=== PATIENT | female | born 1970 | race Caucasian/White ===

== ENCOUNTER 2016-08-30 13:12 | Inpatient (IN) | payer OTHER ==
--- NOTE | 2016-08-30 13:51 | PDOC ---
History of Present Illness - General History Source: Patient Exam Limitations: No Limitations - History of Present Illness Initial Comments: 08/30/16 14:07 The patient is a 46-year-old woman, accompanied by spouse, with a past medical history of a benign pituitary adenoma, anemia, and borderline diabetes mellitus who was sent to his PMD, Dr. Donna Walden to the emergency department for further evaluation of anemia. Patient went to her PMDs office, secondary to progressively worsening left flank pain for the past 8 days. She reports that initially her pain was intermittent and resolved with naas-nbs-[id number] Motrin, however her symptoms worsen and it became constant and did not resolve after taking Motrin. She went to Dr. Walden's office, approximately days ago, for which she was started on antibiotics and pain medications was advised to return to the office if her symptoms persist/worsen. She returned two days later, where she had outpatient labs drawn and ultrasounds performed, which was indicative for a hemoglobin of 6.6 and was advised to present to the emergency department. She states that she has a history of heavy periods for the past 3 years and reports compliance with iron supplements. Her typically menses are heavy for the first 3-4 days (reports soaking 4-5x pads/ day), gets alliance director with spotting and resolves within 8-10 days. Her last menstrual period was on 08/07/2016 and was consistent with her regular menses. She has been evaluated by her Special Shopper who informed her that her source of anemia is due to her history of fibroids. A recommendation was suggested to remove her fibroids, for which she has opted out of. She denies fever, chills, diaphoresis, generalized weakness. She denies chest pain, shortness of breath, cough She denies nausea, vomiting, diarrhea, dysuria, hematuria, urinary frequency and urgency, flank pain, vaginal discharge/vaginal bleeding Allergies: No Known Drug Allergies Past Surgical History: None reported. Social History: No tobacco, ETOH and recreational drug use. Primary Care Physician: Dr. Donna Walden [phone] Special Shopper: Dr. Dipesh Henry [phone] <Ani Burgess - Last Filed: 08/30/16 16:54> - General History Source: Patient, Old Records Exam Limitations: No Limitations <Alicia Barnes - Last Filed: 08/30/16 16:58> - General Chief Complaint: Blood Transfusion Stated Complaint: DIZZINESS, LOW BLOOD COUNT (PCP SENT) Time Seen by Provider: 08/30/16 13:42 Past History <AdityaAni - Last Filed: 08/30/16 16:54> - Past Medical History Anemia: Yes Other medical history: FIBROIDS, PITUITARY PROBLEM - Psycho/Social/Smoking Cessation Hx Anxiety: No Suicidal Ideation: No Smoking History: Never smoked Have you smoked in the past 12 months: No Hx Alcohol Use: No Drug/Substance Use Hx: No Substance Use Type: None <Alicia Barnes - Last Filed: 08/30/16 16:58> - Past Medical History Allergies/Adverse Reactions: Allergies Allergy/AdvReac Type Severity Reaction Status Date / Time No Known Allergies Allergy Verified 08/30/16 13:21 Home Medications: Ambulatory Orders NK [No Known Home Medication] 03/15/15 Review of Systems - Review of Systems Able to Perform ROS?: Yes Comments:: 08/30/16 14:07 CONSTITUTIONAL: Absent: fever, chills, diaphoresis, generalized weakness, malaise, loss of appetite HEENT: Absent: rhinorrhea, nasal congestion, throat pain, throat swelling, difficulty swallowing, mouth swelling, ear pain, eye pain, visual Changes CARDIOVASCULAR: Absent: chest pain, syncope, palpitations, irregular heart rate , lightheadedness, peripheral edema RESPIRATORY: Absent: cough, shortness of breath, dyspnea with exertion, orthopnea, wheezing, stridor, hemoptysis GASTROINTESTINAL: Present: Abdominal Pain. Absent: abdominal distension, nausea , vomiting, diarrhea, constipation, melena, hematochezia GENITOURINARY: Present: Left flank pain. Absent: dysuria, frequency, urgency, hesitancy, hematuria, genital pain MUSCULOSKELETAL: Absent: myalgia, arthralgia, joint swelling SKIN: Absent: rash, itching, pallor HEMATOLOGIC/IMMUNOLOGIC: Absent: easy bleeding, easy bruising, lymphadenopathy, frequent infections ENDOCRINE:Absent: unexplained weight gain, unexplained weight loss, heat intolerance, cold intolerance NEUROLOGIC: Absent: headache, focal weakness or paresthesias, dizziness, unsteady gait, seizure, mental status changes, bladder or bowel incontinence PSYCHIATRIC: Absent: anxiety, depression, suicidal or homicidal ideation, hallucinations <Ani Burgess - Last Filed: 08/30/16 16:54> *Physical Exam - Vital Signs Last Vital Signs Temp Pulse Resp BP Pulse Ox 98.0 F 89 18 132/80 97 08/30/16 13:15 08/30/16 13:15 08/30/16 13:15 08/30/16 13:15 08/30/16 13:15 - Physical Exam Comments: 08/30/16 14:07 GENERAL: Well developed, well nourished. Awake and alert. No acute distress. HEENT: Normocephalic, atraumatic. PERRLA, EOMI. No conjunctival pallor. Sclera are non-icteric. Moist mucous membranes. Oropharynx is clear. NECK: Supple. Full ROM. No JVD. CARDIOVASCULAR: Regular rate and rhythm. No murmurs, rubs, or gallops. PULMONARY: No evidence of respiratory distress. Lungs clear to auscultation bilaterally. No wheezing, rales or rhonchi. ABDOMINAL: Soft. There is some mild tenderness to the epigastrium and right lower quadrant. Non-distended. No rebound or guarding. No organomegaly. Normoactive bowel sounds. MUSCULOSKELETAL: Normal range of motion at all joints. No bony deformities or tenderness. No CVA tenderness. EXTREMITIES: No cyanosis. No clubbing. No edema. No calf tenderness. SKIN: Warm and dry. Normal capillary refill. No rashes. No jaundice. NEUROLOGICAL: Alert, awake, appropriate. Cranial nerves 2-12 intact. Normal speech. PSYCHIATRIC: Cooperative. Good eye contact. Appropriate mood and affect. <Ani Burgess - Last Filed: 08/30/16 16:54> - Vital Signs Last Vital Signs Temp Pulse Resp BP Pulse Ox 98.0 F 89 18 132/80 97 08/30/16 13:15 08/30/16 13:15 08/30/16 13:15 08/30/16 13:15 08/30/16 13:15 <Alicia Barnes - Last Filed: 08/30/16 16:58> ED Treatment Course - LABORATORY CBC & Chemistry Diagram: 08/30/16 14:43 08/30/16 14:43 - RADIOLOGY Radiograph Interpretation: 08/30/16 15:39 EXAM: Transvaginal US IMPRESSION: The uterus is normal in size measuring 9.4 x 6.4 x 5.8 cm. Multiple uterine masses are identified consistent with a leiomyomata. The largest fibroid is a submuscosal lesion measuring 2.4 x 1.7 x 1.5 cm. An IUD is identified within the endometrial cavity. No significant endometrial thickening is noted. A nabothian cyst is identified within the cervix. The ovaries are normal in size and texture with artificial flow documented to both ovaries. There is a complex cyst within the left ovary measuring approximately 2 cm that most probably is hemorrhagic in nature. There is no evidence of adnexal masses or free pelvic fluid collection <Ani Burgess - Last Filed: 08/30/16 16:54> - LABORATORY CBC & Chemistry Diagram: 08/30/16 14:43 08/30/16 14:43 <Alicia Barnes - Last Filed: 08/30/16 16:58> Medical Decision Making - Medical Decision Making 08/30/16 14:39 A call was placed to patient's PMD, Dr. Donna Walden. Case was discussed. 08/30/16 16:[address] Donna Walden on patient's results. <Ani Burgess - Last Filed: 08/30/16 16:54> - Medical Decision Making 08/30/16 14:08 46-year-old female with history of heavy menses who presents the emergency Department with complaints of feeling dizzy, weak and dyspnea on exertion found to have a hemoglobin of 6.7 last week. Differential diagnosis includes but is not limited to: Iron deficiency anemia, anemia secondary to chronic blood loss, uterine fibroids, perimenopause, symptomatic anemia, dehydration, ACS, toxic/ metabolic derangement. Plan: 1. Labs 2. Pelvic ultrasound 3. Urine 4. Transfuse 5. Observe and reevaluate 08/30/16 16:57 Addendum: The labs were reviewed and are noted in the EMR as is the pelvic ultrasound results. I have discussed the case with Dr. Walden and the plan is to admit to med/surg for gyna dn GI work up of anemia. <Alicia Barnes - Last Filed: 08/30/16 16:58> *DC/Admit/Observation/Transfer - Attestations Scribe Attestion: 08/30/16 14:23 Documentation prepared by Ani Burgess, acting as medical support assistant for Alicia Barnes MD. <Ani Burgess - Last Filed: 08/30/16 16:54> - Discharge Dispostion Admit: Yes - Attestations Physician Attestion: 08/30/16 14:10 I, Dr. Alicia Barnes, attest that the scribes documentation that appears above has been prepared under my direction and personally reviewed by me in its entirety. I confirmed that the note above accurately reflects all work, treatment, procedures, and medical decision-making performed by me. <Alicia Barnes - Last Filed: 08/30/16 16:58> Diagnosis at time of Disposition: Anemia due to chronic blood loss, Dizziness - Discharge Dispostion Condition at time of disposition: Stable - Referrals Referrals: Donna Walden MD [Primary Care Provider] -
[2016-08-30 15:21] LABS: BASOPHIL 1.5 % (0-2.0); EOSINOPHIL 1.8 % (0-4.5); MCHC 30.6 g/dl (32.0-36.0); MEAN PLT VOLUME 8.8 fl (7.5-11.1); NEUTROPHILS 65.7 % (42.8-82.8); PLATELET COUNT 283 K/MM3 (134-434); RDW 21.7 % (11.6-15.6); WHITE BLOOD COUNT 6.4 K/mm3 (4.0-10.0)
[2016-08-30 15:40] LABS: ALBUMIN 3.7 g/dl (3.4-5.0); ANION GAP 9 (8-16); BILIRUBIN,TOTAL 0.3 mg/dL (0.2-1.0); CALCIUM 8.8 mg/dL (8.5-10.1); CO2 22 mmol/L (21-32); CREATININE 0.5 mg/dL (0.55-1.02); GLUCOSE,RANDOM 79 mg/dL (74-106); SGPT/ALT 22 U/L (12-78)
[2016-08-30 15:43] LABS: ALK PHOS 87 U/L (45-117); TROPONIN I < 0.02 ng/ml (0.00-0.05)
[2016-08-30 15:50] LABS: SGOT/AST 35 U/L (15-37)
[2016-08-30 16:27] LABS: URINE APPEARANCE CLEAR; URINE BILIRUBIN NEGATIVE (NEGATIVE); URINE COLOR STRAW; URINE GLUCOSE (UA) NEGATIVE (NEGATIVE); URINE KETONE NEGATIVE (NEGATIVE); URINE NITRITE NEGATIVE (NEGATIVE); URINE PROTEIN NEGATIVE (NEGATIVE); URINE UROBILINOGEN NEGATIVE E.U./dl (0.2-1.0)
[2016-08-30 16:31] LABS: URINE BLOOD 3+ (NEGATIVE); URINE LEUK ESTERASE TRACE (NEGATIVE)
[2016-08-30 16:50] LABS: URINE MUCUS RARE; URINE RBC 4 /hpf (0-3); URINE WBC 2 /hpf (3-5)
[2016-08-30 17:36] LABS: INR 1.25 (0.82-1.09); PROTHROMBIN TIME (PATIENT) 13.8 SEC (9.98-11.88)
[2016-08-30 17:39] LABS: ACTIVATED PTT 31.3 SECONDS (26.9-34.4)
--- NOTE | 2016-08-30 18:01 | CON.GI ---
[id number] 4d Anemia - History of Present Illness Chief Complaint: Anemia with WHYTE. History of Present Illness: 46 F with no PMH/PSH except for fibroids which have caused bleeding problems in the past, now with profound anemia. She has long, heavy menses and denies any blood per rectum or change in bowel habits. She has no pain at this time. - History Source History Provided By: Patient, Family Member (daughter) Limitations to Obtaining History: No Limitations - Past Medical History Reproductive: Yes: Fibroids (with bleeding) - Alcohol/Substance Use Hx Alcohol Use: No - Smoking History Smoking history: Never smoked Have you smoked in the past 12 months: No Home Medications - Allergies Allergies/Adverse Reactions: Allergies Allergy/AdvReac Type Severity Reaction Status Date / Time No Known Allergies Allergy Verified 08/30/16 13:21 - Home Medications Home Medications: Ambulatory Orders Acetaminophen [Tylenol .Regular Strength -] 650 mg PO Q6H PRN #0 tablet Ascorbate Calcium [Vitamin C] 500 mg PO DAILY #30 tablet 08/31/16 Ferrous Sulfate 325 mg PO BID #30 tablet 08/31/16 Physical Exam-GI Vital Signs: Vital Signs Temperature 98.0 F 08/30/16 13:15 Pulse Rate 89 08/30/16 13:15 Respiratory Rate 18 08/30/16 13:15 Blood Pressure 132/80 08/30/16 13:15 O2 Sat by Pulse Oximetry (%) 97 08/30/16 13:15 Constitutional: Yes: Well Nourished, Calm Eyes: Yes: WNL HENT: Yes: Normocephalic Neck: Yes: Supple Cardiovascular: Yes: Regular Rate and Rhythm Respiratory: Yes: CTA Bilaterally Gastrointestinal Inspection: Yes: WNL ...Auscultate: Yes: Normoactive Bowel Sounds ...Palpate: Yes: Soft, Tenderness (suprapubic) ...Rectal Exam: Yes: Deferred Labs: INR, PTT INR Cancelled 08/30/16 14:43 CBC, BMP 08/30/16 14:43 08/30/16 14:43 Hepatic Panel Total Bilirubin 0.3 mg/dL (0.2-1.0) D 08/30/16 14:43 AST 35 U/L (15-37) D 08/30/16 14:43 ALT 22 U/L (12-78) 08/30/16 14:43 Alkaline Phosphatase 87 U/L (45-117) D 08/30/16 14:43 Albumin 3.7 g/dl (3.4-5.0) 08/30/16 14:43 INR, PTT INR 1.25 (0.82-1.09) H 08/30/16 16:32 Imaging - Results Ultrasound: Report Reviewed (transvaginal u/s with multiple fibroids and L ovarian cyst) Assessment/Plan 46 F with above history. 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 She is being reinstated on September 08. There does not seem to be any active GI issue but will clear her GI tract as opt. I discussed this with her daughter (a former employee of ours) and she agrees. Rec: Transfuse to Hgb >8 TAX COMPLIANCE MANAGER eval Colon/EGD as outpatient Regular diet Mild coagulopathy-INR 1.25. Consider heme consult If any further bleeding, give 2 units of FFP
[2016-08-30 18:58] LABS: ANISOCYTOSIS 2+; HYPOCHROMIA 3+; MICROCYTOSIS 2+; OVALOCYTES 1+; PLATELET ESTIMATE ADEQUATE (NORMAL); POIKILOCYTOSIS 1+; POLYCHROMASIA RARE; SPHEROCYTE 1+
[2016-08-30] MEDS ORDERED: ONDANSETRON *ODT* 4 MG TABLET SL PRN (20:25)
[2016-08-30] MEDS ORDERED: diphenhydrAMINE HCL 25 MG CAPSULE (FP) PO PRN (20:25)
[2016-08-30] MEDS ORDERED: ACETAMINOPHEN 325 MG TABLET (FP) PO PRN (20:25)
[2016-08-30 21:34] VITALS: BMI 23.0
[2016-08-31 05:38] VITALS: BP 127/58; PULSE 60; TEMP 98.4
[2016-08-31 07:27] LABS: BASOPHIL 0.6 % (0-2.0); EOSINOPHIL 3.3 % (0-4.5); MCH 21.6 pg (25.7-33.7); MCHC 31.3 g/dl (32.0-36.0); MCHC 31.6 g/dl (32.0-36.0); MEAN CELL VOLUME 68.6 fl (80-96); MEAN CELL VOLUME 68.8 fl (80-96); MEAN PLT VOLUME 9.1 fl (7.5-11.1); MEAN PLT VOLUME 9.3 fl (7.5-11.1); PLATELET COUNT 233 K/MM3 (134-434); PLATELET COUNT 242 K/MM3 (134-434); RDW 28.1 % (11.6-15.6); RDW 28.6 % (11.6-15.6); WHITE BLOOD COUNT 5.9 K/mm3 (4.0-10.0)
[2016-08-31 07:47] LABS: ALBUMIN 3.4 g/dl (3.4-5.0); ALK PHOS 75 U/L (45-117); ANION GAP 9 (8-16); BILIRUBIN,TOTAL 0.6 mg/dL (0.2-1.0); CALCIUM 8.7 mg/dL (8.5-10.1); CO2 23 mmol/L (21-32); CREATININE 0.5 mg/dL (0.55-1.02); GLUCOSE,RANDOM 70 mg/dL (74-106); SGOT/AST 7 U/L (15-37); SGPT/ALT 17 U/L (12-78); TOT PROT 7.1 g/dl (6.4-8.2)
[2016-08-31 07:49] LABS: INR 1.23 (0.82-1.09); PROTHROMBIN TIME (PATIENT) 13.6 SEC (9.98-11.88)
--- NOTE | 2016-08-31 11:46 | CONSULT ---
Consult Consult Specialty:: Command Center Officer Reason for Consultation:: Fibroid uterus, symptomatic anemia requiring blood transfusion - History of Present Illness Chief Complaint: Patient states she was seen for pelvic/flank pain last week and had blood work done, she was called and told to go the the ER because she was anemic History of Present Illness: 46yo P2, LMP 08/07/16, who went to her PMD due to pelvic and flank pain which has been worsening. She initially saw her PMD and was started on antibiotics and pain medications was advised to return to the office if her symptoms worsened. She returned two days later, where she had outpatient labs drawn and ultrasounds performed, which was indicative for a hemoglobin of 6.6 and was advised to present to the emergency department. 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 She had a paraguard IUD placed in 2011. She states her menses are typically heavy for 2 days and then she has light bleeding for an additional 5-6 days. She has been evaluated by her Command Center Officer who informed her that her source of anemia is due to her history of fibroids. A recommendation was suggested to remove her fibroids, but she did not feel this was necessary. She denies current vaginal bleeding, pelvic pain or urinary frequency or dysuria. POB: x2 PGYN: +F/OC/-STD, denies hx of abnormal pap, states last was 1.5 years ago Ultrasound shows uterus 9.4x6.4x5.8 with multiple fibroids, the largest 2.4x1.7x1.5, submucosal. Also noted a 2cm left complex cyst, likely hemorrhagic and and IUD in place. 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: No: Alzheimer's, CVA, Dementia, Migraine, Multiple Sclerosis, Peripheral Neuropathy, Parkinson's, Seizure, Syncope, TIA, Vertigo, Other Cardio/Vascular: No: AFIB, Aneurysm, Aortic Insufficiency, Aortic Stenosis, CAD , CHF, Deep Vein Thrombosis, HTN, Hyperlipdemia, ND, Mitral Insufficiency, Mitral Stenosis, Murmur, Pulmonary Hypertension, Other Pulmonary: No: Asthma, Bronchitis, Cancer, COPD, O2 Dependent, Pneumonia, Previously Intubated, Pulmonary Embolus, Pulmonary Fibrosis, Sleep Apnea, Other Gastrointestinal: No: Ascites, Cancer, Constipation, Crohn's Disease, Diverticulitis, Diverticulosis, Esophageal Varices, Gastritis, GERD, GI Bleed, Hemorrhoids, Hiatal Hernia, Inflamatory Bowel Disease, Irritable Bowel Disease, Pancreatitis, Peptic Ulcer Disease, Ulcerative Colitis, Other Hepatobiliary: No: Cirrhosis, Cholelithiasis, Cholecystitis, Choledocholithiasis , Hepatitis A, Hepatitis B, Hepatitis C, Other Renal/: No: Renal Failure, Renal Inusuff, BPH, Cancer, Hematuria, Hemodialysis , Neurogenic Bladder, Renal Calculi, UTI, Other Reproductive: No: Ectopic , Endometriosis, Fibroids, PID, Polycystic Ovary Syndrome, Postmenopausal, Other ...LMP: 08/07/16 ...: No ...: 2 ...Para: 2 Heme/Onc: Yes: Anemia Infectious Disease: No: AIDS, C-Diff, Herpes Zoster, HIV, MRSA, STD's, Tuberculosis, VREF, Other Psych: No: Addictions, Anxiety, Bipolar, Depression, Panic, Psychosis, Schizophrenia, Other Musculoskeletal: No: Bursitis, Chronic low back pain, Hemiparesis, Hemiplegia, Osteoarthritis, Paraplegia, Other Rheumatology: No: Fibromyalgia, Gout, Lupus, Rheumatoid Arthritis, Sarcoidosis, Vasculitis, Other ENT: No: Allergic Rhinitis, Sinusitis, Other Dermatology: No: Basal Cell, Cellulitis, Eczema, Melanoma, Psoriasis, Squamous Cell, Other - Past Surgical History Past Surgical History: Yes: None - Alcohol/Substance Use Hx Alcohol Use: No History of Substance Use: reports: None - Smoking History Smoking history: Never smoked Have you smoked in the past 12 months: No Home Medications - Allergies Allergies/Adverse Reactions: Allergies Allergy/AdvReac Type Severity Reaction Status Date / Time No Known Allergies Allergy Verified 08/30/16 13:21 - Home Medications Home Medications: Ambulatory Orders NK [No Known Home Medication] 03/15/15 Review of Systems - Review of Systems Constitutional: reports: No Symptoms Eyes: reports: No Symptoms HENT: reports: No Symptoms Neck: reports: Swollen Glands Cardiovascular: reports: No Symptoms Respiratory: reports: No Symptoms Gastrointestinal: reports: No Symptoms Genitourinary: reports: No Symptoms Breasts: reports: No Symptoms Reported Musculoskeletal: reports: No Symptoms Integumentary: reports: No Symptoms Neurological: reports: No Symptoms Endocrine: reports: No Symptoms Hematology/Lymphatic: reports: No Symptoms Psychiatric: reports: No Symptoms Physical Exam Vital Signs: Vital Signs Temperature 98.4 F 08/31/16 05:37 Pulse Rate 60 08/31/16 05:37 Respiratory Rate 20 08/31/16 05:37 Blood Pressure 127/58 08/31/16 05:37 O2 Sat by Pulse Oximetry (%) 99 08/30/16 21:46 Constitutional: Yes: Well Nourished, No Distress, Calm Eyes: Yes: WNL HENT: Yes: WNL Cardiovascular: Yes: WNL, Regular Rate and Rhythm Respiratory: Yes: WNL, Regular Gastrointestinal: Yes: WNL, Soft Renal/: Yes: Other (No vaginal bleeding) Musculoskeletal: Yes: WNL Extremities: Yes: WNL Labs: CBC, BMP 08/31/16 06:00 08/31/16 06:00 Imaging - Results Ultrasound: Report Reviewed, Image Reviewed Problem List - Problems (1) Anemia due to chronic blood loss Code(s): D50.0 - IRON DEFICIENCY ANEMIA SECONDARY TO BLOOD LOSS (CHRONIC) (2) Fibroid uterus Code(s): D25.9 - LEIOMYOMA OF UTERUS, UNSPECIFIED Assessment/Plan 46P2 LMP 08/07/16 with known fibroid uterus who presented to the ER with anemia. Denies current pelvic pain or heavy vaginal bleeding. Feels improved after 2u pRBC's. Likely anemic secondary to submucosal fibroid. She previously declined a myomectomy. She is currently stable and states she will make an appointment with Dr Noguera in September to further discuss fibroids. VSS. AF. -After Hg/Hct stable, november d/c home per medicine -will f/u with her Command Center Officer -no other current management of fibroid uterus currently indicated
--- NOTE | 2016-08-31 12:34 | HP ---
Admitting History and Physical - Admission Chief Complaint: anemia History of Present Illness: The patient is a 46-year-old woman, accompanied by spouse, with a past medical history of a benign pituitary adenoma, anemia, and borderline diabetes mellitus who was sent to his PMD, Dr. Donna Walden to the emergency department for further evaluation of anemia. Patient went to her PMDs office, secondary to progressively worsening left flank pain for the past 8 days. She reports that initially her pain was intermittent and resolved with [id number] Motrin, however her symptoms worsen and it became constant and did not resolve after taking Motrin. She went to Dr. Walden's office, a few days ago, for which she was started on antibiotics and pain medications was advised to return to the office if her symptoms persist/worsen. She returned two days later, where she had outpatient labs drawn and ultrasounds performed, which was indicative for a hemoglobin of 6.6 and was advised to present to the emergency department. She states that she has a history of heavy periods for the past 3 years and reports compliance with iron supplements. Her typically menses are heavy for the first 3-4 days (reports soaking 4-5x pads/ day), gets senior product development scientist with spotting and resolves within 8-10 days. Her last menstrual period was on 08/07/2016 and was consistent with her regular menses. She has been evaluated by her Energy Assistant who informed her that her source of anemia is due to her history of fibroids. A recommendation was suggested to remove her fibroids, for which she has opted out of. 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: No: Alzheimer's, CVA, Dementia, Migraine, Multiple Sclerosis, Peripheral Neuropathy, Parkinson's, Seizure, Syncope, TIA, Vertigo, Other Cardiovascular: No: AFIB, Aneurysm, Aortic Insufficiency, Aortic Stenosis, CAD, CHF, Deep Vein Thrombosis, HTN, Hyperlipdemia, DC, Mitral Insufficiency, Mitral Stenosis, Murmur, Pulmonary Hypertension, Other Pulmonary: No: Asthma, Bronchitis, Cancer, COPD, O2 Dependent, Pneumonia, Previously Intubated, Pulmonary Embolus, Pulmonary Fibrosis, Sleep Apnea, Other Gastrointestinal: No: Ascites, Cancer, Constipation, Crohn's Disease, Diverticulitis, Diverticulosis, Esophageal Varices, Gastritis, GERD, GI Bleed, Hemorrhoids, Hiatal Hernia, Inflamatory Bowel Disease, Irritable Bowel Disease, Pancreatitis, Peptic Ulcer Disease, Ulcerative Colitis, Other Hepatobiliary: No: Cirrhosis, Cholelithiasis, Cholecystitis, Choledocholithiasis , Hepatitis A, Hepatitis B, Hepatitis C, Other Renal/: No: Renal Failure, Renal Inusuff, BPH, Cancer, Hematuria, Hemodialysis , Neurogenic Bladder, Renal Calculi, UTI, Other Reproductive: Yes: Fibroids ...LMP: 08/07/16 ...LMP Comment: heavy ...: No ...: 2 ...Para: 2 Heme/Onc: Yes: Anemia Infectious Disease: No: AIDS, C-Diff, Herpes Zoster, HIV, MRSA, STD's, Tuberculosis, VREF, Other Psych: No: Addictions, Anxiety, Bipolar, Depression, Panic, Psychosis, Schizophrenia, Other Musculoskeletal: No: Bursitis, Chronic low back pain, Hemiparesis, Hemiplegia, Osteoarthritis, Paraplegia, Other Rheumatology: No: Fibromyalgia, Gout, Lupus, Rheumatoid Arthritis, Sarcoidosis, Vasculitis, Other ENT: No: Allergic Rhinitis, Sinusitis, Other Endocrine: Yes: Diabetes Mellitus, Other (pitutary adenoma) Dermatology: No: Basal Cell, Cellulitis, Eczema, Melanoma, Psoriasis, Squamous Cell, Other - Past Surgical History Past Surgical History: Yes: None - Smoking History Smoking history: Never smoked Have you smoked in the past 12 months: No - Alcohol/Substance Use Hx Alcohol Use: No History of Substance Use: reports: None Home Medications - Allergies Allergies/Adverse Reactions: Allergies Allergy/AdvReac Type Severity Reaction Status Date / Time No Known Allergies Allergy Verified 08/30/16 13:21 - Home Medications Home Medications: Ambulatory Orders NK [No Known Home Medication] 03/15/15 Review of Systems - Review of Systems Constitutional: reports: No Symptoms Neck: reports: No Symptoms Cardiovascular: reports: No Symptoms Respiratory: reports: No Symptoms Gastrointestinal: reports: No Symptoms Genitourinary: reports: No Symptoms, Other (no vaginal bleeding) Physical Examination Vital Signs: Vital Signs Temperature 98.4 F 08/31/16 05:37 Pulse Rate 60 08/31/16 05:37 Respiratory Rate 20 08/31/16 05:37 Blood Pressure 127/58 08/31/16 05:37 O2 Sat by Pulse Oximetry (%) 99 08/30/16 21:46 Constitutional: Yes: Calm Neck: Yes: Trachea Midline Cardiovascular: Yes: Regular Rate and Rhythm, S1, S2 Respiratory: Yes: CTA Bilaterally Gastrointestinal: Yes: Normal Bowel Sounds, Soft Edema: No Neurological: Yes: Alert, Oriented Labs: CBC, BMP 08/31/16 06:00 08/31/16 06:00 Imaging - Results Ultrasound: Report Reviewed (fibroids ,hemorhagic cyst of left ovary IUD) Problem List - Problems (1) Anemia due to chronic blood loss Assessment/Plan: sec t o heavy periods/fibroids got 2 prbc now hgb is better no vaginal bleeding to follow up with her GRAIN MILL PRODUCTS INSPECTOR and will make appoiintment to see dr bhatti for coagulopathy appreicate GI and obgyn consults start ferrous sulfate and vitamin C Code(s): D50.0 - IRON DEFICIENCY ANEMIA SECONDARY TO BLOOD LOSS (CHRONIC) (2) Fibroid uterus Assessment/Plan: to see her obgyn and disccus myomectomy Code(s): D25.9 - LEIOMYOMA OF UTERUS, UNSPECIFIED
--- NOTE | 2016-08-31 12:36 | DS ---
Physical Examination Vital Signs: Vital Signs Temperature 98.4 F 08/31/16 05:37 Pulse Rate 60 08/31/16 05:37 Respiratory Rate 20 08/31/16 05:37 Blood Pressure 127/58 08/31/16 05:37 O2 Sat by Pulse Oximetry (%) 99 08/30/16 21:46 awake alert no vaginal bleeding no dizziness wants to go home s/p 2 units prbc Constitutional: Yes: Calm Neck: Yes: Trachea Midline Cardiovascular: Yes: Regular Rate and Rhythm, S1, S2 Respiratory: Yes: CTA Bilaterally Gastrointestinal: Yes: Normal Bowel Sounds, Soft Edema: No Neurological: Yes: Alert, Oriented Labs: CBC, BMP 08/31/16 06:00 08/31/16 06:00 Discharge Summary Reason For Visit: ANEMIA, DIZZINESS Current Active Problems Anemia due to chronic blood loss (Acute) Dizziness (Acute) Fibroid uterus (Acute) Hospital Course: The patient is a 46-year-old woman, accompanied by spouse, with a past medical history of a benign pituitary adenoma, anemia, and borderline diabetes mellitus who was sent to his PMD, Dr. Donna Walden to the emergency department for further evaluation of anemia. Patient went to her PMDs office, secondary to progressively worsening left flank pain for the past 8 days. She reports that initially her pain was intermittent and resolved with [id number] Motrin, however her symptoms worsen and it became constant and did not resolve after taking Motrin. She went to Dr. Walden's office, a few days ago, for which she was started on antibiotics and pain medications was advised to return to the office if her symptoms persist/worsen. She returned two days later, where she had outpatient labs drawn and ultrasounds performed, which was indicative for a hemoglobin of 6.6 and was advised to present to the emergency department. She states that she has a history of heavy periods for the past 3 years and reports compliance with iron supplements. Her typically menses are heavy for the first 3-4 days (reports soaking 4-5x pads/ day), gets product manager [employer] services with spotting and resolves within 8-10 days. Her last menstrual period was on 08/07/2016 and was consistent with her regular menses. She has been evaluated by her Bench As[employer]er who informed her that her source of anemia is due to her history of fibroids. A recommendation was suggested to remove her fibroids, for which she has opted out of. patient hgb of 7.3 in ER got 2 units prbc saw obgyn and GI plan to follow up with her obgyn and heme doctor as well as outpatient Condition: Stable - Instructions Diet, Activity, Other Instructions: ferrous sulfate 325mg po bid vitamin C 500mg po daily Referrals: Donna Walden MD [Primary Care Provider] - Dipesh Henry MD [Staff Physician] - 1 Week Krissy Jerez MD [Staff Physician] - 2 Weeks (make appointment to see doctor regarding abnormal blood work and coagulopathy) Disposition: HOME - Home Medications Comprehensive Discharge Medication List: Ambulatory Orders NK [No Known Home Medication] 03/15/15
--- NOTE | 2016-08-31 21:31 | EKG ---
Test Reason : Blood Pressure : / mmHG Vent. Rate : 069 BPM Atrial Rate : 069 BPM P-R Int : 138 ms QRS Dur : 086 ms QT Int : 380 ms P-R-T Axes : 058 033 036 degrees QTc Int : 407 ms NORMAL SINUS RHYTHM NONSPECIFIC T WAVE ABNORMALITY ABNORMAL ECG WHEN COMPARED WITH ECG OF 15-MAR-2015 13:26, NO SIGNIFICANT CHANGE WAS FOUND Confirmed by INA BERNARDO MD ([id number]) on 08/31/2016 9:31:27 PM Referred By: Confirmed By:INA BERNARDO MD
[2016-09-01 06:05] LABS: SERUM IRON 76 ug/dL (27-159); TOTAL IRON BINDING CAPACITY 375 ug/dL (250-450); UIBC 299 ug/dL (131-425)
[2016-09-02 00:08] LABS: PROTEIN C ACTIVITY 104 % (73-180); PROTEIN S ACTIVITY 74 % (63-140)
== END 2016-08-31 14:57 | disposition home or self-care (01) | DRG 663 ==
LOC: JER 13:12 → JERBED 16:58 → J7W 20:57
PROVIDERS: ADMIT Family Medicine; ATTEND Family Medicine
PROC: 30233N1 Transfusion of Nonautologous Red Blood Cells into Peripheral Vein, Percutaneous Approach (ICD-10-PCS; principal; 2016-08-30)
DX: D50.0 Iron deficiency anemia secondary to blood loss (chronic) (principal); D35.2 Benign neoplasm of pituitary gland; R73.03 Prediabetes; D25.9 Leiomyoma of uterus, unspecified; N83.292 Other ovarian cyst, left side
CPT/HCPCS: 36415; 36430; 71020-TC; 76830-TC; 80053; 81003; 81015; 82550; 82607; 82746; 83540; 83550; 83690; 84484; 84703; 85025; 85027; 85303; 85306; 85610; 85730; 86850; 86900; 86901; 86922; 87086; 93005; 93010; 99284-25; P9038; P9058

== ENCOUNTER 2022-04-15 04:38 | Day surgery (SDC) | payer OTHER ==
[2022-04-13 14:31] VITALS: BMI 27.3
[2022-04-15 10:53] VITALS: TEMP 97.3
[2022-04-15 10:55] VITALS: BP 131/85; PULSE 66; RESP 13
== END 2022-04-15 09:54 | disposition home or self-care (01) ==
LOC: JASU-ENDO 04:38
PROVIDERS: ATTEND Internal Medicine Gastroenterology
PROC: 0DB78ZX Excision of Stomach, Pylorus, Via Natural or Artificial Opening Endoscopic, Diagnostic (ICD-10-PCS; 2022-04-15)
PROC: 0DBL8ZX Excision of Transverse Colon, Via Natural or Artificial Opening Endoscopic, Diagnostic (ICD-10-PCS; principal; 2022-04-15 08:45)
DX: Z12.11 Encounter for screening for malignant neoplasm of colon (principal); D12.3 Benign neoplasm of transverse colon; K29.50 Unspecified chronic gastritis without bleeding
CPT/HCPCS: 81025; 88305-TC; 88342-TC